=== PATIENT | female | born 1970 | race Caucasian/White ===

== ENCOUNTER 2022-07-15 10:56 | Outpatient (RCR) | payer OTHER | END 2022-07-21 | LOC: PT 10:56 | PROVIDERS: ATTEND Family Medicine Sports Medicine | DX: M75.41 Impingement syndrome of right shoulder (principal); M75.51 Bursitis of right shoulder; S43.491A Other sprain of right shoulder joint, initial encounter ==

== ENCOUNTER 2022-08-12 10:00 | Outpatient (RCR) | payer OTHER | END 2022-08-20 | LOC: PT 10:00 | PROVIDERS: ATTEND Family Medicine Sports Medicine | DX: M25.511 Pain in right shoulder (principal); M75.41 Impingement syndrome of right shoulder; M75.51 Bursitis of right shoulder; S43.491A Other sprain of right shoulder joint, initial encounter ==